=== PATIENT | female | born 1965 | race Caucasian/White ===

== ENCOUNTER → 2017-11-23 | Outpatient (CLI) | payer OTHER ==
[~2017-11-23] MED LIST: ASPIR 8181 MG PO; CHANTIX1 EACH PO; LIPITOR PO; METFORMIN HCL1000 MG PO
== END ==
LOC: MAMMO 09:03
PROVIDERS: ATTEND Internal Medicine
DX: Z12.31 Encounter for screening mammogram for malignant neoplasm of breast (principal)
CPT/HCPCS: 77067

== ENCOUNTER → 2018-11-17 | Outpatient (CLI) | payer OTHER ==
--- NOTE | 2018-11-26 08:51 | Diagnostic Imaging Report ---
#[id number] - [id number] #BILATERAL DIGITAL SCREENING MAMMOGRAM WITH CAD: 11/17/2018 CLINICAL: Routine screening. Comparison is made to exams dated: 11/23/2017 mammogram and 10/07/2016 mammogram - [facility]. Current study contains 8 films. The tissue of both breasts is predominantly fatty. Current study was also evaluated with a Computer Aided Detection (CAD) system. Benign appearing calcifications are noted bilaterally. No significant masses, calcifications, or other findings are seen in either breast. IMPRESSION: BENIGN There is no mammographic evidence of malignancy. A 1 year screening mammogram is recommended. The patient will be notified by letter of the results. MARCO GONSALES M.D. ct/penrad:11/25/2018 13:05:30 Intake Rn: Yoli IRVIN(R)(M), [facility] letter sent: Normal Exam Mammogram BI-RADS: 2 Benign
== END ==
LOC: MAMMO 12:58
PROVIDERS: ATTEND Internal Medicine
DX: Z12.31 Encounter for screening mammogram for malignant neoplasm of breast (principal)
CPT/HCPCS: 77067

== ENCOUNTER → 2019-11-16 | Outpatient (CLI) | payer OTHER | LOC: MAMMO 13:33 | PROVIDERS: ATTEND Internal Medicine | DX: Z12.31 Encounter for screening mammogram for malignant neoplasm of breast (principal) | CPT/HCPCS: 77067 ==

== ENCOUNTER → 2020-02-10 | Outpatient (CLI) | payer BC | END | disposition home or self-care (01) | LOC: US 10:28 | PROVIDERS: ATTEND Internal Medicine | DX: N61.1 Abscess of the breast and nipple (principal) ==

== ENCOUNTER 2020-06-15 06:46 | Observation (INO) | payer BC ==
[2020-06-13 13:23] LABS: BASOPHILS % 0.4 % (0.0-1.0); EOSINOPHILS # (AUTO) 0.2 (0.0-0.4); EOSINOPHILS % 1.9 % (0.0-6.0); HEMATOCRIT 37.2 % (34.2-44.1); HEMOGLOBIN 11.8 g/dL (12.0-16.0); LYMPHOCYTES # (AUTO) 2.9 (1.0-3.2); LYMPHOCYTES % 35.4 % (18.0-39.1); MEAN CORPUSCULAR HGB CONC 31.7 g/dL (31-35); MEAN CORPUSCULAR VOLUME 91.4 fL (81-99); MONOCYTES # (AUTO) 0.6 (0.2-0.8); MONOCYTES % 7.3 % (4.4-11.3); NEUTROPHILS # (AUTO) 4.5 (2.1-6.9); NEUTROPHILS % 54.8 % (38.7-80.0); PLATELET COUNT 199 x10e3/uL (140-360); RED BLOOD COUNT 4.07 x10e6/uL (3.6-5.1); RED CELL DISTRIBUTION WIDTH 13.4 % (11.7-14.4)
[2020-06-13 13:36] LABS: ANION GAP 13.2 mmol/L (8-16); BLOOD UREA NITROGEN 27 mg/dL (7-26); BUN/CREATININE RATIO 34 (6-25); CALCIUM 9.1 mg/dL (8.4-10.2); CARBON DIOXIDE 27 mmol/L (22-29); CHLORIDE 104 mmol/L (98-107); CREATININE, SERUM 0.79 mg/dL (0.57-1.11); EST GLOMERULAR FILTRATION RATE > 60 ML/MIN (60-); GLUCOSE 120 mg/dL (74-118); POTASSIUM 5.2 mmol/L (3.5-5.1); SODIUM 139 mmol/L (136-145)
[~2020-06-15] VITALS: Ht 170.2 cm; Wt 112.5 kg
[2020-06-15] MEDS ORDERED: NEURONTIN300 MG PO (08:31)
[2020-06-15] MEDS ORDERED: LOSARTAN POTASS25 MG PO (08:31)
[2020-06-15] MEDS ORDERED: CLINDAMYCIN PHOS 900MG/ 50ML 50 ML IV ONE (09:13)
[2020-06-15] MEDS ORDERED: CEFTRIAXONE SOD 1 GM VIAL ONE (09:13)
[2020-06-15] MEDS ORDERED: ACETAMINOPHEN 1000 MG/100 ML 100 ML IV ONE (09:28)
[2020-06-15] MEDS ORDERED: LIDOCAINE 1% W/EPINEPHRINE 20 ML VIAL ONE (09:40)
[2020-06-15] MEDS ORDERED: BUPIVACAINE 0.25% 30ML SDV ONE (09:40)
[2020-06-15] MEDS ORDERED: MUPIROCIN 2% OINT 22 GM TUBE ONE (10:26)
[2020-06-15] MEDS ORDERED: HYDROCODONE/APAP 7.5MG-325MG 1 EA TAB PO PRN (10:45)
[2020-06-15] MEDS ORDERED: FENTANYL CITRATE/PF 100MCG/2 ML INJ ONE ×2 (11:20→11:57)
[2020-06-15 11:53] VITALS: BP 95/81
[2020-06-15] MEDS ORDERED: MIDAZOLAM HCL 2 MG/2 ML VIAL ONE (11:57)
[2020-06-15] MEDS: LACTATED RINGER'S 1,000 ML INJ SCH ×2 (12:00→23:05)
[2020-06-15] MEDS: PIPERACILLIN/TAZOBAC 3.375 GM in SODIUM CHLORIDE 0.9% 50ML 50 ML IV SCH ×3 (12:00→23:05)
[2020-06-15] MEDS: LOSARTAN POTASSIUM 25 MG TAB PO SCH ×2 (12:00→17:00)
[2020-06-15] MEDS ORDERED: PROPOFOL IV EMULSION 10 MG/ML 20 ML VIAL ONE (13:16)
[2020-06-15] MEDS ORDERED: DESFLURANE 240 ML BTL INH ONE (13:16)
[2020-06-15] MEDS ORDERED: NEOSTIGMINE 1 MG/ML 10ML VIAL ONE (13:16)
[2020-06-15] MEDS ORDERED: LIDOCAINE HCL 2% LOCAL INJ 5 ML SDV VIAL INJ ONE (13:16)
[2020-06-15] MEDS ORDERED: ROCURONIUM BROMIDE 10 MG/ML 5ML VIAL IV ONE (13:16)
[2020-06-15] MEDS ORDERED: GLYCOPYRROLATE INJ 0.2 MG/ML VIAL ONE (13:16)
[2020-06-15] MEDS ORDERED: ONDANSETRON HCL INJ 2MG/ML 2ML 2 MG/ML VIAL ONE (13:16)
[2020-06-15 13:22] VITALS: BP 95/81
[2020-06-15 13:31] VITALS: BP_DIAS 81
[2020-06-15 15:40] VITALS: BP 154/83
[2020-06-15] MEDS: METFORMIN HCL 500 MG TAB PO SCH (16:55)
[2020-06-15] MEDS: CLINDAMYCIN 600MG / 50ML 50 ML IV SCH (17:00)
[2020-06-15 20:00] VITALS: BP 132/65
[2020-06-15 20:20] VITALS: BP 132/65
[2020-06-15] MEDS: HYDROMORPHONE 1MG/1ML INJ IV PRN (21:43)
[2020-06-16] VITALS: BP 129/62
[2020-06-16] MEDS: CLINDAMYCIN 600MG / 50ML 50 ML IV SCH ×2 (00:36→08:53)
[2020-06-16 04:00] VITALS: BP 155/76
[2020-06-16] MEDS: PIPERACILLIN/TAZOBAC 3.375 GM in SODIUM CHLORIDE 0.9% 50ML 50 ML IV SCH ×2 (05:08→12:00)
[2020-06-16] MEDS: HYDROMORPHONE 1MG/1ML INJ IV PRN (07:28)
[2020-06-16 07:34] VITALS: BP 153/73
[2020-06-16 07:44] VITALS: BP 153/73
[2020-06-16] MEDS: METFORMIN HCL 500 MG TAB PO SCH (08:00)
[2020-06-16] MEDS: LACTATED RINGER'S 1,000 ML INJ SCH (08:00)
[2020-06-16] MEDS: LOSARTAN POTASSIUM 25 MG TAB PO SCH (08:53)
[2020-06-16] MEDS ORDERED: GABAPENTIN 300 MG CAP PO SCH ×2 (09:00→21:00)
[2020-06-16 11:27] VITALS: BP 135/76
[2020-06-16 15:17] VITALS: BP 148/75
== END 2020-06-16 15:23 | disposition home or self-care (01) ==
LOC: OR 06:46 → PACU V 10:51 → MED/SURG2 11:27
PROVIDERS: ADMIT Surgery; ATTEND Surgery
DX: N61.21 Granulomatous mastitis, right breast (principal); D49.3 Neoplasm of unspecified behavior of breast; E11.9 Type 2 diabetes mellitus without complications; Z20.822 Contact with and (suspected) exposure to COVID-19; Z01.818 Encounter for other preprocedural examination
CPT/HCPCS: 19301; 36415 ×3; 71046; 80048; 82948 ×2; 85025; 87071; 87075; 87186; 87205; 88305; 93005; G0378 ×2; J0131; J0696; J1170 ×2; J2001; J2250; J2405; J2543 ×2; J2704; J2710; J3010; J7121 ×2; U0002; 88307